=== PATIENT | female | born 1950 | race Caucasian/White ===

== ENCOUNTER 2016-09-06 19:08 | Emergency (ER) | payer OTHER, MEDICAID ==
[2016-09-06 22:23] VITALS: BP 148/73
== END 2016-09-06 21:19 | disposition left against medical advice (07) ==
LOC: ED 19:08
DX: Z53.21 Procedure and treatment not carried out due to patient leaving prior to being seen by health care provider (principal)

== ENCOUNTER 2016-11-14 14:26 | Emergency (ER) | payer OTHER, MEDICAID ==
[~2016-11-14] VITALS: Ht 154.9 cm; Wt 66.3 kg
[2016-11-14 15:55] VITALS: BP 146/90
== END 2016-11-14 15:55 | disposition home or self-care (01) ==
LOC: ED 14:26
DX: Z76.0 Encounter for issue of repeat prescription (principal); F41.9 Anxiety disorder, unspecified; F03.90 Unspecified dementia, unspecified severity, without behavioral disturbance, psychotic disturbance, mood disturbance, and anxiety; G47.00 Insomnia, unspecified; E11.9 Type 2 diabetes mellitus without complications

== ENCOUNTER 2017-02-23 21:25 | Emergency (ER) | payer OTHER, MEDICAID ==
[~2017-02-23] VITALS: Ht 154.9 cm; Wt 62.1 kg
[2017-02-23 23:40] VITALS: BP 128/76
== END 2017-02-23 23:36 ==
LOC: ED 21:25
DX: S39.012A Strain of muscle, fascia and tendon of lower back, initial encounter (principal); E11.9 Type 2 diabetes mellitus without complications; M79.7 Fibromyalgia; Z79.84 Long term (current) use of oral hypoglycemic drugs; X58.XXXA Exposure to other specified factors, initial encounter; Y93.89 Activity, other specified; Y99.8 Other external cause status; Y92.89 Other specified places as the place of occurrence of the external cause